=== PATIENT | male | born 1950 | race Caucasian/White ===

== ENCOUNTER 2018-03-29 13:07 | Emergency (ER) | payer OTHER ==
[~2018-03-29] VITALS: Ht 172.7 cm; Wt 73.6 kg
[2018-03-29 13:21] VITALS: BP 127/91
[2018-03-29] MEDS ORDERED: ACETAMINOPHEN 325 MG TABLET PO ONE (14:00)
== END 2018-03-29 14:03 | disposition left against medical advice (07) ==
LOC: ED 14:00
DX: G89.29 Other chronic pain (principal); M25.572 Pain in left ankle and joints of left foot; X50.1XXA Overexertion from prolonged static or awkward postures, initial encounter; Y93.89 Activity, other specified; Y92.410 Unspecified street and highway as the place of occurrence of the external cause; Y99.8 Other external cause status
CPT/HCPCS: 99283

== ENCOUNTER 2018-04-07 21:07 | Observation (INO) | payer SELFPAY ==
[~2018-04-07] VITALS: Ht 172.7 cm; Wt 78.6 kg
[2018-04-07] MEDS ORDERED: ASPIRIN 81 MG TABLET CHEW PO ONE (22:00)
--- NOTE | 2018-04-07 22:15 | NUR ---
THIS RN REQUESTED JOANNE BUTLER TO SEE PT TO GIVEN MEDS AND ATTACH MONITORS.
[2018-04-07] MEDS ORDERED: ASPIRIN 81 MG TABLET CHEW ONE (22:16)
[2018-04-07 22:23] LABS: ANION GAP 5 mmol/L (5-15); CALCIUM 8.4 mg/dL (8.5-10.1); CHLORIDE 107 mmol/L (98-107); CREATININE 0.82 mg/dL (0.7-1.3)
[2018-04-07 22:27] LABS: TROPONIN I < 0.015 ng/mL (0.000-0.045)
[2018-04-07 22:33] LABS: MEAN CORPUSCULAR HEMOGLOBIN 32.9 pg (27.5-34.5); MEAN CORPUSCULAR HGB CONC 33.3 g/dL (33.2-36.2); MEAN CORPUSCULAR VOLUME 98.8 fL (81-97); RED BLOOD COUNT 4.35 x10^6/uL (4.38-5.82); RED CELL DISTRIBUTION WIDTH 14.3 % (9.4-14.8)
--- NOTE | 2018-04-07 23:02 | NUR ---
PT AWAY IN IMAGAING.
[2018-04-07 23:07] LABS: MEAN PLATELET VOLUME 7.9 fL (7.4-10.4); PLATELET COUNT 180 x10^3/uL (130-400)
[2018-04-07 23:21] LABS: ANISOCYTOSIS 1+; BAND#(MANUAL) 0.13 x10^3/uL; BANDS%(MANUAL) 2 % (0-7); EOS#(MANUAL) 0.51 x10^3/uL (0.0-0.4); EOS% (MANUAL) 8 % (1-7); LYMPHS% (MANUAL) 11 % (22-44); MONOS#(MANUAL) 0.77 x10^3/uL (0.3-2.7); MONOS% (MANUAL) 12 % (2-9); SEG#(MANUAL) 4.29 x10^3/uL (1.8-6.8); SEGS% (MANUAL) 67 % (42-75)
[2018-04-07 23:22] LABS: <PLATELET ESTIMATE> ADEQUATE; <PLT MORPHOLOGY> NORMAL PLT MORPH
[2018-04-07 23:40] LABS: MD YES
--- NOTE | 2018-04-08 00:05 | NUR ---
ALL RESULTS BACK, PT UP FOR RE-EVAL.
--- NOTE | 2018-04-08 00:38 | NUR ---
AT BEDSIDE FOR RE-EVAL.
[2018-04-08] MEDS ORDERED: NITROGLYCERIN SINGLE TAB 0.4 MG SL ONE (00:46)
--- NOTE | 2018-04-08 00:55 | NUR ---
PIV PLACED FOR ADMISSION. NITRO X1 GIVEN FOR 8/10 CHEST PAIN. PT MADE AWARE OF ADMISSION PLAN. PT TACHYCARDIC, OTHERWISE VSS.
[2018-04-08] MEDS ORDERED: NITROGLYCERIN 0.4 MG BOTTLE (25 TABS) SL PRN ×2 (01:00→02:00)
--- NOTE | 2018-04-08 01:57 | NUR ---
PT RESTING COMFORTABLY, WAITING FOR STAFF TO TRANSFER PT UP TO FLOOR.
[2018-04-08] MEDS ORDERED: ACETAMINOPHEN 325 MG TABLET PO PRN (02:00)
[2018-04-08] MEDS ORDERED: hydrALAzine 20 MG/ML, 1ML IVPush PRN (02:00)
[2018-04-08] MEDS ORDERED: BISACODYL 10 MG SUPP PR PRN (02:00)
[2018-04-08] MEDS ORDERED: POLYETHYLENE GLYCOL 17 GM PACKET PO PRN (02:00)
[2018-04-08] MEDS ORDERED: ONDANSETRON 2MG/ML, 2ML IVPush PRN (02:00)
[2018-04-08] MEDS ORDERED: PROMETHAZINE 25 MG/ML, 1ML IM PRN (02:00)
[2018-04-08] MEDS ORDERED: LABETALOL 5MG/ML, 20ML IVPush PRN (02:00)
[2018-04-08] MEDS ORDERED: morphine SULFATE 10 MG/ML, 1ML IVPush PRN (02:00)
[2018-04-08] MEDS ORDERED: ONDANSETRON ODT 4 MG PO PRN (02:00)
[2018-04-08] MEDS ORDERED: OXYcodone IR 5MG TABLET PO PRN (02:00)
[2018-04-08] MEDS ORDERED: FUROSEMIDE 20 MG/2 ML IV ONE (02:00)
[2018-04-08] MEDS ORDERED: DOCUSATE 100 MG CAPSULE PO PRN (02:00)
[2018-04-08] MEDS ORDERED: GABAPENTIN 300 MG CAPSULE PO PRN (02:00)
[2018-04-08 02:10] VITALS: BP 118/83
[2018-04-08 02:15] LABS: FREE T4 (FREE THYROXINE) 1.24 ng/dL (0.76-1.46); TROPONIN I < 0.015 ng/mL (0.000-0.045)
[2018-04-08 02:20] LABS: HEMOGLOBIN A1C 5.7 % (4.2-6.3)
[2018-04-08] MEDS: ENOXAPARIN 40 MG/0.4 ML SQ SCH (02:20)
[2018-04-08] MEDS: ASPIRIN 325 MG TABLET EC PO SCH (06:22)
[2018-04-08 07:56] VITALS: BP 116/82
[2018-04-08] MEDS ORDERED: REGADENOSON 0.4 MG/5 ML SYRINGE ONE (08:55)
[2018-04-08 09:01] LABS: TROPONIN I < 0.015 ng/mL (0.000-0.045)
[2018-04-08 14:59] VITALS: BP 133/86
[2018-04-08 19:44] VITALS: BP 152/85
[2018-04-09] MEDS: ENOXAPARIN 40 MG/0.4 ML SQ SCH (02:00)
[2018-04-09 03:51] VITALS: BP 130/83
[2018-04-09 05:12] LABS: BASOPHILS # (AUTO) 0.03 x10^3/uL (0-0.1); BASOPHILS % (AUTO) 0 % (0-1); EOSINOPHILS # (AUTO) 0.28 x10^3/uL (0-0.4); EOSINOPHILS % (AUTO) 4 % (1-7); LYMPHOCYTES # (AUTO) 1.03 x10^3/uL (1-3.4); LYMPHOCYTES % (AUTO) 16 % (22-44); MD NO; MEAN CORPUSCULAR HEMOGLOBIN 33.2 pg (27.5-34.5); MEAN CORPUSCULAR HGB CONC 33.8 g/dL (33.2-36.2); MEAN PLATELET VOLUME 8.7 fL (7.4-10.4); MONOCYTES # (AUTO) 0.91 x10^3/uL (0.2-0.8); MONOCYTES % (AUTO) 14 % (2-9); NEUTROPHILS # (AUTO) 4.33 x10^3/uL (1.8-6.8); NEUTROPHILS % (AUTO) 66 % (42-75); PLATELET COUNT 163 x10^3/uL (130-400); RED BLOOD COUNT 4.31 x10^6/uL (4.38-5.82); RED CELL DISTRIBUTION WIDTH 14.3 % (9.4-14.8)
[2018-04-09] MEDS: ASPIRIN 325 MG TABLET EC PO SCH (05:13)
[2018-04-09 05:24] LABS: CHLORIDE 105 mmol/L (98-107)
[2018-04-09 05:31] LABS: ALANINE AMINOTRANSFERASE 42 U/L (12-78); ALBUMIN 2.7 g/dL (3.4-5.0); ALKALINE PHOSPHATASE 51 U/L (45-117); ANION GAP 6 mmol/L (5-15); BILIRUBIN,TOTAL 0.8 mg/dL (0.2-1.0); CALCIUM 8.1 mg/dL (8.5-10.1); CHOL/HDL RATIO 2.1; CHOLESTEROL, TOTAL 126 mg/dL (140-239); CREATININE 0.86 mg/dL (0.7-1.3); HDL CHOL % 48 % (26-37); HDL CHOLESTEROL (DIRECT) 61 mg/dL (40-60); LDL CHOLESTEROL,CALCULATED 51 mg/dL (54-169); LDL/HDL RATIO 0.8 (0.5-3.0); TOTAL PROTEIN 7.2 g/dL (6.4-8.2); TRIGLYCERIDES 72 mg/dL (50-200); VLDL CHOLESTEROL 14 mg/dL (0-25)
[2018-04-09 08:50] VITALS: BP 152/88
== END 2018-04-09 14:11 | disposition home or self-care (01) ==
LOC: ED 04-08 00:05 → EDIP 04-08 00:48 → INTOOBSV 04-08 00:48 → 5SO 04-08 02:07
PROVIDERS: ADMIT Internal Medicine; ATTEND Hospitalist
DX: R07.9 Chest pain, unspecified (principal); M79.89 Other specified soft tissue disorders; F43.10 Post-traumatic stress disorder, unspecified; I50.32 Chronic diastolic (congestive) heart failure
CPT/HCPCS: 36415; 71045; 78452; 80048; 80053; 80061; 82040; 83036; 83735; 83880; 84439; 84443; 84484; 85025; 93005; 93017; 93306; 93970; 96372; 96374; 97161; 97165; 97535; 99284; A9502; C9898; G0378; G8978; G8979; G8980; J1650; J1940; J2785

== ENCOUNTER 2018-04-20 06:47 | Emergency (ER) | payer SELFPAY ==
[~2018-04-20] VITALS: Ht 172.7 cm; Wt 76.0 kg
[2018-04-20 06:54] VITALS: BP 141/95
[2018-04-20] MEDS ORDERED: RIVAROXABAN 20 MG TABLET PO ONE (07:00)
[2018-04-20] MEDS ORDERED: RIVAROXABAN 20 MG TABLET ONE (07:10)
--- NOTE | 2018-04-20 07:37 | NUR ---
Patient given discharge instructions and they have confirmed that they understand the instructions. Pt refused to try to ambulate or leave dept upon DC stating "You all are just gonna kick me out, no place to go. You know I'm trying to get to [facility] Security called to assist with departure. Patient [facility] ambulatory with steady gait. Pt left with all DC instructions incl referral lists provided by [facility].
== END 2018-04-20 07:42 | disposition home or self-care (01) ==
LOC: ED 07:36
DX: R07.89 Other chest pain (principal)
CPT/HCPCS: 93005; 99283